=== PATIENT | female | born 1970 | race African-American/Black ===

== ENCOUNTER 2019-03-10 18:44 | Emergency (ER) | payer MEDICAID, OTHER ==
[~2019-03-10] VITALS: Ht 162.6 cm; Wt 95.3 kg
[~2019-03-10 18:44] MED LIST: ENAL10TA2
[2019-03-10] MEDS ORDERED: cloNIDine HCL 0.1 MG TAB PO ONE (20:30)
[2019-03-10 21:02] LABS: Basophils # (auto) 0.1 uL; Eosinophils # (auto) 0.1 uL; Eosinophils % (auto) 1.4 % (0.0-7.0); Hemoglobin 9.3 g/dL (12.2-16.2)
[2019-03-10 21:02] LABS: Urine Bacteria FEW /hpf (None Seen); Urine Blood Negative /uL (Negative); Urine Specific Gravity 1.007 (1.001-1.035); Urine WBC <1 /hpf (0 - 5)
[2019-03-10 21:03] LABS: Basophils % (auto) 0.9 % (0.0-2.0); Hematocrit 30.4 % (36.0-46.0); Lymphocytes # (auto) 1.6 uL; Lymphocytes % (auto) 23.7 % (10.0-50.0); Mean Corpuscular Hemoglobin 21.5 pg (28.0-32.0); Mean Corpuscular Hgb Conc. 30.8 g/dL (32.0-36.0); Mean Corpuscular Volume 69.9 fL (80.0-100.0); Monocytes # (auto) 0.5 uL; Monocytes % (auto) 6.9 % (0.0-12.0); Neutrophils # (auto) 4.5 uL; Neutrophils % (auto) 67.1 % (37.0-80.0); Platelet Count (auto) 235 10^3/uL (140-450); Red Blood Cells 4.34 10^6/uL (4.0-5.20); Red Cell Distribution Width 19.3 % (11.8-14.3); White Blood Cell 6.8 10^3/uL (4.4-10.8)
[2019-03-10 21:20] LABS: Albumin 3.5 g/dL (3.4-5.0); Anion Gap 8 (5-15); BUN/Creatinine Ratio 21.2; Blood Urea Nitrogen 14 mg/dL (7-18); Calcium 7.9 mg/dL (8.5-10.1); Carbon Dioxide 23 mmol/L (21-32); Chloride 108 mmol/L (98-107); GFR African American 122 mL/min; GFR Non-African American 101 mL/min; Glucose 95 mg/dL (74-106); Potassium 3.6 mmol/L (3.5-5.1); Sodium 139 mmol/L (136-145)
[2019-03-10 21:25] LABS: Alanine Aminotransferase 13 U/L (13-56); Alkaline Phosphatase 83 U/L (45-117); Aspartate Aminotransferase 11 U/L (15-37); Bilirubin, Total 0.4 mg/dL (0.2-1.0); Creatine Kinase IFCC 98 U/L (26-192); Total Protein 7.2 g/dL (6.4-8.2)
[2019-03-11 01:30] VITALS: BP 122/77
== END 2019-03-11 01:54 | disposition home or self-care (01) ==
LOC: EDSEX 18:44 → EDBD 18:44 → ER 18:45
DX: I10 Essential (primary) hypertension (principal); F41.9 Anxiety disorder, unspecified
CPT/HCPCS: 36415; 71045; 80053; 81001; 82550; 82553; 83880; 84484; 85025; 85379; 93005